=== PATIENT | female | born 1990 | race Caucasian/White ===

== ENCOUNTER → 2019-03-04 08:52 | Outpatient (CLI) | payer OTHER | END | disposition home or self-care (01) | LOC: D.MRI 02-26 09:00 | PROVIDERS: ATTEND Orthopaedic Surgery | DX: M79.672 Pain in left foot (principal) ==

== ENCOUNTER 2019-04-30 07:15 | Day surgery (SDC) | payer OTHER ==
[~2019-04-30] VITALS: Ht 162.6 cm; Wt 66.2 kg
[~2019-04-30 07:15] MED LIST: AMBIEN5 MG PO; LEXAPRO5 MG
[2019-04-30 07:36] LABS: HEMOGLOBIN 12.7 g/dL (12-16); MCH 26.2 pg (26.0-34.0); MCHC 34.3 g/dL (31.0-37.0); MCV 76.4 fL (80.0-100.0); MEAN PLATELET VOLUME 9.3 fL (7.4-10.4); RBC 4.84 10x6/uL (4.00-5.40); RDW 13.9 % (11.5-14.5); WBC 6.9 10x3/uL (4.8-10.8)
[2019-04-30 08:05] VITALS: BP 138/82; Ht 162.6 cm; Wt 66.2 kg
--- NOTE | 2019-04-30 08:33 | NUR ---
DR. JOHNSTON NOTIFIED AND REVIEWED PT'S BEHAVIOR AND ASSESSMENT RESULTS. PT IS A LOW RISK PER DR. JOHNSTON. DR. JOHNSTON STATED TO GIVE RESOUCRES TO PT AT TIME OF DISCHARGE. NO FURTHER ORDERS AT THIS TIME. RESOURCES REVIEWED WITH PT AND SHE VERBALIZED UNDERSTANDING.
[2019-04-30] MEDS ORDERED: HYDROCODON-ACE1 EA10 PO (10:37)
--- NOTE | 2019-04-30 12:35 | OP ---
PATIENT NAME: RENALDO COREA MEDICAL RECORD: [id number] :89 LOCATION:D.OPS ADMISSION DATE: SURGEON: HELGA GARCIAS MD DATE OF OPERATION: 04/30/2019 PREOPERATIVE DIAGNOSES: Painful posterior tibial tendon of the left foot with substantial scar tissue. POSTOPERATIVE DIAGNOSES: Painful posterior tibial tendon of the left foot with substantial scar tissue. PROCEDURE: Debridement of posterior tibial tendon, left foot. SURGEON: Helga Garcias MD PAINTING MANAGER: KERRI French INTRAOPERATIVE COMPLICATIONS: None. SUMMARY OF PATHOLOGIC FINDINGS: The patient had a very large knot stack that was just beneath the subq that was painful. She also had substantial scar tissue posterior to the medial malleolus that required freeing up the tendon from this point down to its insertion. OPERATIVE SUMMARY IN DETAIL: After obtaining the appropriate preoperative orthopedic surgery consent as well as anesthetic consultation, evaluation and clearance, the patient was brought to the operating room and placed on the operating table in supine position. After adequate general laryngeal mask airway was administered, the patient was placed in the left lateral decubitus position. All pressure points were well padded. She was held firmly to the operating table using the vacuum pack suction system. The patient's left lower extremity was prepped and draped in routine sterile fashion. At this point, the appropriate timeout was taken and agreed upon by all in the OR suite after the appropriate patient identifiers were utilized. Foot was elevated and exsanguinated, tourniquet was inflated to 350 mmHg. An incision was made over the previous incision. This was taken down to the knot stack first. All Ethibond sutures were removed. At this point, care was taken to maintain ample tissue to reapproximate the posterior tibialis retinaculum. The tendon itself was identified and freed up from proximal to the incisions and distal to the incision from the insertion point back to the musculotendinous junction. A 2-0 FiberWire was then used gently to reapproximate the retinaculum to maintain the posterior tibial tendon and its sheath. Wound was then copiously irrigated and closed with 2-0 Vicryl followed by 4-0 Prolene by KERRI French. Having completed this, sterile dressings were applied. Tourniquet was deflated. Posterior L&U splint was applied. The patient was awakened and taken to the recovery room in stable condition. All final needle and sponge counts were correct. TRANSINT:[id number] Voice Confirmation ID: [id number] DOCUMENT ID: [id number] OPERATIVE REPORT [id number] RENALDO COREA MD, HELGA RUBIO at 1235 CC: [id number] DICTATION DATE: 04/30/19 1059 DAY CARE HOME MOTHER: 04/30/19 1132 [address] [place] [id number] [place] [id number]
--- NOTE | 2019-04-30 13:55 | NUR ---
1245 IV REMOVED WITH [facility] INTACT. DC CRITERIA MET. PAIN DOWN TO 2 OR 3 ON PAIN SCALE AFTER RECIEVED MED. DRESSING TO GO HOME.
--- NOTE | 2019-04-30 13:56 | NUR ---
1255 ALL DC INSTRUCTIONS GIVEN. VOICES UNDERSTANDING. TAKEN DOWN VIA W/C TO CAR WITH . ADVISED TO CALL OR COME BACK IF ANY PROBLEMS.
== END 2019-04-30 12:55 | disposition home or self-care (01) ==
LOC: D.OPS 07:15
PROVIDERS: Anesthesiology; ATTEND Orthopaedic Surgery
DX: M67.874 Other specified disorders of tendon, left ankle and foot (principal); Z01.812 Encounter for preprocedural laboratory examination

== ENCOUNTER → 2019-06-18 09:02 | Outpatient (CLI) | payer BC ==
[2019-04-30 08:05] VITALS: BMI 25.1
[~2019-06-18 09:02] MED LIST changes: +HYDROCODON-ACE1 EA10 PO
== END | disposition home or self-care (01) ==
LOC: D.MRI 06-16 09:00
PROVIDERS: ATTEND Clinical Nurse Specialist Family Health
DX: M79.672 Pain in left foot (principal)

== ENCOUNTER → 2019-10-02 08:31 | Outpatient (CLI) | payer BC ==
[2019-04-30 08:05] VITALS: BMI 25.1
== END | disposition home or self-care (01) ==
LOC: D.MRI 08:31
PROVIDERS: ATTEND Clinical Nurse Specialist Family Health
DX: M25.572 Pain in left ankle and joints of left foot (principal)